=== PATIENT | female | born 1985 | race Two or more races ===

== ENCOUNTER 2016-12-30 19:20 | Emergency (ER) | payer BC, MEDICAID ==
[2016-12-30 19:41] VITALS: BP 131/79
[2016-12-30] MEDS ORDERED: Amoxicillin 500 MG Cap PO ONE (19:49)
[2016-12-30] MEDS ORDERED: Acetaminophen/oxyCODONE 325-5 MG Tab PO ONE (19:49)
--- NOTE | 2016-12-31 02:05 | ER ---
DATE SEEN: 12/30/2016 CHIEF COMPLAINT: Tooth pain. HISTORY OF PRESENT ILLNESS: This is a 31-year-old female complaining of pain in the right upper molar area, pain that shoots up to the ear, severe, has not improved with Tylenol. She saw a dentist yesterday, who advised her to have it removed and this was scheduled for January 24. REVIEW OF SYSTEMS: No fever or sore throat. No neck pain. ALLERGIES: Hydrocodone, made her to have shortness of breath. PHYSICAL EXAMINATION: VITAL SIGNS: Temperature is normal. Blood pressure is 131/79. ORAL: Confirmed a huge cavity on the right tooth #1. IMPRESSION: Dental pain. PLAN: Amoxicillin 500 mg p.o. t.i.d. and Tylenol No. 3 one tablet t.i.d. p.r.n. She is advised to see her PCP if symptoms not get better in a few days. Time seen was 07:45 p.m. /[id number] RYANN/ROSANNE
== END 2016-12-30 19:55 | disposition home or self-care (01) ==
LOC: FB.ED 19:20
DX: K08.89 Other specified disorders of teeth and supporting structures (principal); Z88.5 Allergy status to narcotic agent
CPT/HCPCS: 99282; A9270

== ENCOUNTER 2017-10-21 22:32 | Emergency (ER) | payer MEDICAID ==
[2017-10-21] MEDS ORDERED: Ondansetron 8 MG Tab.DIS PO ONE (22:38)
[2017-10-21] MEDS ORDERED: Alum Hydroxide/Mag Hydroxide 15 ML, Lidocaine 2% 15 ML PO ONE ×2 (22:39)
--- NOTE | 2017-10-22 00:57 | EDM.PDOC ---
ED HPI GENERAL MEDICAL PROBLEM - General Chief Complaint: Abdominal Pain Stated Complaint: ABD PAIN Time Seen by Provider: 10/21/17 22:35 Source of Information: Reports: Patient, Family History Limitations: Reports: No Limitations - History of Present Illness INITIAL COMMENTS - FREE TEXT/NARRATIVE: 31 years old w f came to the ed shortly after she ate fatty meat. Pt realized, she had similar symptoms in the past when heating fatty food. Pain is located at his mid upper abd. abd. more so on the right upper abdomen. No Trauma, no F/ C. no vomiting. No other acute medical issues. BP 120/71 RR 18 Pulse ox 99% on RA temp 36.8 pulse 88 Onset Date: 10/21/17 Onset Time: 18:00 Duration: Hour(s): Location: Reports: Abdomen Quality: Reports: Burning, Dull, Pressure, Same as Previous Episode (after eating fatty food) Severity: Moderate Improves with: Reports: Rest Worsens with: Reports: Movement Context: Reports: Other (eating fatty food) Associated Symptoms: Reports: Nausea/Vomiting upper abdomen Pain Score (Numeric/FACES): 10 - Related Data Allergies Allergy/AdvReac Type Severity Reaction Status Date / Time hydrocodone Allergy Shortness Verified 10/21/17 22:38 of Breath Home Meds: Home Meds Ondansetron [Zofran ODT] 4 mg PO Q6H PRN #20 tab.dis 10/22/17 [Rx] Past Medical History [employer] History: Reports: - Past Surgical History Female Surgical History: Reports: Hysterectomy Social & Family History - Family History Family Medical History: Noncontributory - Tobacco Use Smoking Status *Q: Never Smoker Second Hand Smoke Exposure: No - Caffeine Use Caffeine Use: Reports: Soda - Recreational Drug Use Recreational Drug Use: No ED ROS GENERAL - Review of Systems Review Of Systems: See Below Constitutional: Reports: No Symptoms HEENT: Reports: No Symptoms Respiratory: Reports: No Symptoms Cardiovascular: Reports: No Symptoms Endocrine: Reports: No Symptoms GI/Abdominal: Reports: Abdominal Pain, Nausea, Vomiting : Reports: No Symptoms Musculoskeletal: Reports: No Symptoms Skin: Reports: No Symptoms Neurological: Reports: No Symptoms Psychiatric: Reports: No Symptoms Hematologic/Lymphatic: Reports: No Symptoms Immunologic: Reports: No Symptoms ED EXAM, GI/ABD - Physical Exam Exam: See Below Exam Limited By: No Limitations General Appearance: Alert, WD/WN, Mild Distress Eyes: Bilateral: Normal Appearance Ears: Normal External Exam Nose: Normal Inspection Throat/Mouth: Normal Inspection Head: Atraumatic, Normocephalic Neck: Normal Inspection, Supple, Non-Tender, Full Range of Motion Respiratory/Chest: No Respiratory Distress, Lungs Clear, Normal Breath Sounds Cardiovascular: Normal Peripheral Pulses, Regular Rate, Rhythm, No Edema, No Gallop, No JVD, No Murmur, No Rub GI/Abdominal Exam: Normal Bowel Sounds, Tender (epigastric) (Female) Exam: Deferred Rectal (Female) Exam: Deferred Back Exam: Normal Inspection, Full Range of Motion Extremities: Normal Inspection, Normal Range of Motion, Non-Tender, No Pedal Edema Neurological: Alert, Oriented, CN II-XII Intact, Normal Cognition, Normal Gait, No Motor/Sensory Deficits Psychiatric: Normal Affect, Normal Mood Skin Exam: Warm, Dry, Intact, Normal Color, No Rash Lymphatic: No Adenopathy Course - Vital Signs Text/Narrative:: 31 years old w f came to the ed shortly after she ate fatty meat. Pt realized, she had similar symptoms in the past when heating fatty food. Pain is located at his mid upper abd. abd. more so on the right upper abdomen. No Trauma, no F/ C. no vomiting. No other acute medical issues. BP 120/71 RR 18 Pulse ox 99% on RA temp 36.8 pulse 88 PE: WNWD W F with acute epigastric pain after eating fatty food Labs: CBC, BMP Aylase LA were nl Impression: Acute gastritis Tx: GI Raine lemos Reexam: Improbed 80% Plan: D/C with instructions Last Recorded V/S: Last Vital Signs Temp Pulse 91 10/21/17 22:35 Resp 18 10/21/17 22:35 BP 120/71 10/21/17 22:35 Pulse Ox 98 10/21/17 22:35 - Orders/Labs/Meds Orders: Active Orders 24 hr Category Date Time Status Abdomen Ltd [US] Stat Exams 10/22/17 00:22 Ordered Labs: Laboratory Tests 10/22/17 10/22/17 10/22/17 Range/Units 00:50 00:50 00:50 WBC 9.8 (4.5-12.0) X10-3/uL RBC 4.01 (3.23-5.20) x10(6)uL Hgb 12.6 (11.5-15.5) g/dL Hct 35.9 (30.0-51.3) % MCV 89.6 (80-96) fL MCH 31.4 (27.7-33.6) pg MCHC 35.0 (32.2-35.4) g/dL RDW 12.1 (11.5-15.5) % Plt Count 278 (125-369) X10(3)uL MPV 7.6 (7.4-10.4) fL Neut % (Auto) 59.2 (46-82) % Lymph % (Auto) 30.5 (13-37) % [place] % (Auto) 8.8 (4-12) % Eos % (Auto) 1 (1.0-5.0) % Baso % (Auto) 1 (0-2) % Neut # (Auto) 5.8 (1.6-8.3) # Lymph # (Auto) 3.0 (0.6-5.0) # [place] # (Auto) 0.9 (0.0-1.3) # Eos # (Auto) 0.1 (0.0-0.8) # Baso # (Auto) 0.0 (0.0-0.2) # PT 10.5 (8.7-11.1) INR 1.04 (0.89-1.13) Sodium 139 (135-145) mmol/L Potassium 3.8 (3.5-5.3) mmol/L Chloride 103 (100-110) mmol/L Carbon Dioxide 27 (21-32) mmol/L BUN 17 (7-18) mg/dL Creatinine 0.8 (0.55-1.02) mg/dL Est Cr Clr Drug Dosing 72.52 mL/min Estimated GFR (MDRD) > 60 (>60) BUN/Creatinine Ratio 21.3 H (9-20) Glucose 111 (80-116) mg/dL Lactic Acid (0.4-2.2) mmol/L Calcium 9.2 (8.6-10.2) mg/dL Total Bilirubin 0.3 (0.1-1.3) mg/dL Direct Bilirubin 0.07 L (0.10-0.20) mg/dL AST 19 (5-25) IU/L ALT 32 (12-36) U/L Alkaline Phosphatase 86 (56-112) IU/L Total Protein 7.4 (6.0-8.0) g/dL Albumin 3.8 (3.5-5.2) g/dL Amylase (25-115) U/L 10/22/17 10/22/17 Range/Units 00:50 00:50 WBC (4.5-12.0) X10-3/uL RBC (3.23-5.20) x10(6)uL Hgb (11.5-15.5) g/dL Hct (30.0-51.3) % MCV (80-96) fL MCH (27.7-33.6) pg MCHC (32.2-35.4) g/dL RDW (11.5-15.5) % Plt Count (125-369) X10(3)uL MPV (7.4-10.4) fL Neut % (Auto) (46-82) % Lymph % (Auto) (13-37) % [place] % (Auto) (4-12) % Eos % (Auto) (1.0-5.0) % Baso % (Auto) (0-2) % Neut # (Auto) (1.6-8.3) # Lymph # (Auto) (0.6-5.0) # [place] # (Auto) (0.0-1.3) # Eos # (Auto) (0.0-0.8) # Baso # (Auto) (0.0-0.2) # PT (8.7-11.1) INR (0.89-1.13) Sodium (135-145) mmol/L Potassium (3.5-5.3) mmol/L Chloride (100-110) mmol/L Carbon Dioxide (21-32) mmol/L BUN (7-18) mg/dL Creatinine (0.55-1.02) mg/dL Est Cr Clr Drug Dosing mL/min Estimated GFR (MDRD) (>60) BUN/Creatinine Ratio (9-20) Glucose (80-116) mg/dL Lactic Acid 1.2 (0.4-2.2) mmol/L Calcium (8.6-10.2) mg/dL Total Bilirubin (0.1-1.3) mg/dL Direct Bilirubin (0.10-0.20) mg/dL AST (5-25) IU/L ALT (12-36) U/L Alkaline Phosphatase (56-112) IU/L Total Protein (6.0-8.0) g/dL Albumin (3.5-5.2) g/dL Amylase 45 (25-115) U/L Meds: Medications Discontinued Medications Generic Name Dose Route Start Last Admin Trade Name Freq PRN Reason Stop Dose Admin Al Hydroxide/Mg Hydroxide 15 0 ml 10/21/17 22:39 10/21/17 22:43 ml/ Lidocaine HCl 15 ml PO 10/21/17 22:40 30 ml ONETIME ONE Administration Ondansetron HCl 8 mg 10/21/17 22:38 10/21/17 22:43 Zofran Odt PO 10/21/17 22:39 8 mg ONETIME ONE Administration Departure - Departure Time of Disposition: 00:58 Disposition: Home, Self-Care 01 Condition: Good Clinical Impression: Epigastric abdominal pain - Discharge Information Prescriptions: Ondansetron [Zofran ODT] 4 mg PO Q6H PRN #20 tab.dis PRN Reason: nasea Referrals: Lai Godinez MD [Primary Care Provider] - Forms: ED Department Discharge, ED Return to Work/School Form Additional Instructions: Please take zofran for nausea, pleas f/u this Sunday as scheduled for US abd. limited NPO 12 hours before the test. Please avoid fatty food, come back to the ed if your symptoms get worse acutely - My Orders Last 24 Hours: My Active Orders 10/22/17 00:22 Abdomen Ltd [US] Stat - Assessment/Plan Last 24 Hours: My Active Orders 10/22/17 00:22 Abdomen Ltd [US] Stat
[2017-10-22 09:45] VITALS: BP 110/59
== END 2017-10-22 01:13 | disposition home or self-care (01) ==
LOC: FB.ED 22:32
DX: K29.00 Acute gastritis without bleeding (principal); Z88.5 Allergy status to narcotic agent
CPT/HCPCS: 36415; 80048; 80076; 82150; 83605; 85025; 85610; 99284; A9270